=== PATIENT | female | born 1985 | race Caucasian/White ===

== ENCOUNTER 2018-11-30 06:30 | Inpatient (IN) | payer OTHER ==
[~2018-11-30 06:30] MED LIST: CITRIC ACID/SODIUM CITRATE 30 ML UNIT-DOSE CUP PO ONE; ELECTROLYTE-148 SOLN 500 ML IV ONE
[2018-11-30 06:49] VITALS: BMI 26.3
[2018-11-30] MEDS ORDERED: ELECTROLYTE-148 SOLN 1,000 ML IV SCH (07:00)
[2018-11-30] MEDS ORDERED: morphine SULFATE/PF 0.5 MG/ML (2cc Syringe - QUVA) ONE (08:03)
[2018-11-30] MEDS ORDERED: PHENYLEPHRINE HCL 10 MG/1 ML SINGLE DOSE VIAL ONE (08:04)
[2018-11-30] MEDS ORDERED: ceFAZolin SODIUM 1 GM VIAL ONE (08:04)
[2018-11-30] MEDS ORDERED: ePHEDrine SULFATE 50 MG/1 ML AMPULE ONE (08:12)
[2018-11-30] MEDS ORDERED: OXYTOCIN 20 UNITS in 0.9% NS 40 UNIT/2,000 ML INFUS.BAG IV ONE (08:19)
[2018-11-30] MEDS ORDERED: ONDANSETRON 4 MG/2 ML VIAL IVPUSH PRN (09:58)
[2018-11-30] MEDS ORDERED: METHYLERGONOVINE MALEATE 0.2 MG/1 ML AMP IM PRN (10:03)
[2018-11-30] MEDS ORDERED: SENNOSIDES/DOCUSATE COMBO (SENNA PLUS) TABLET (UD) PO PRN (10:03)
[2018-11-30] MEDS ORDERED: oxyCODONE HCL 5 MG TABLET PO PRN (10:03)
--- NOTE | 2018-11-30 10:09 | HP ---
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: Alzheimer's, CVA, Dementia, Migraine, Multiple Sclerosis, Peripheral Neuropathy, Parkinson's, Seizure, Syncope, TIA, Vertigo, Other Cardiovascular: No: AFIB, Aneurysm, Aortic Insufficiency, Aortic Stenosis, CAD, CHF, Deep Vein Thrombosis, HTN, Hyperlipdemia, HI, Mitral Insufficiency, Mitral Stenosis, Murmur, Pulmonary Hypertension, Other Pulmonary: No: Asthma, Bronchitis, Cancer, COPD, O2 Dependent, Pneumonia, Previously Intubated, Pulmonary Embolus, Pulmonary Fibrosis, Sleep Apnea, Other Gastrointestinal: No: Ascites, Cancer, Constipation, Crohn's Disease, Diverticulitis, Diverticulosis, Esophageal Varices, Gastritis, GERD, GI Bleed, Hemorrhoids, Hiatal Hernia, Inflamatory Bowel Disease, Irritable Bowel Disease, Pancreatitis, Peptic Ulcer Disease, Ulcerative Colitis, Other Hepatobiliary: No: Cirrhosis, Cholelithiasis, Cholecystitis, Choledocholithiasis , Hepatitis A, Hepatitis B, Hepatitis C, Other Renal/: No: Renal Failure, Renal Inusuff, BPH, Cancer, Hematuria, Hemodialysis , Neurogenic Bladder, Renal Calculi, UTI, Other Reproductive: No: Ectopic , Endometriosis, Fibroids, PID, Polycystic Ovary Syndrome, Postmenopausal, Other ...: 6 ...Para: 2 ...Term: 2 ...: 0 ...Spon : 3 ...Induced : 0 ...Multiple Gestation: 0 ... Weeks Gestation by Dates: 39.5 ...EDC by Dates: 12/02/18 ...EDC by Sono: 12/06/18 Heme/Onc: No: Anemia, B12 Deficiency, Bleeding Disorder, Cancer, Current Chemotherapy, Current Radiation Therapy, Hemochromatosis, Hypercoaguable State, Myeloproliferative Synd, Sickle Cell Disease, Sickle Cell Trait, Thrombocytopenia, Other Infectious Disease: No: AIDS, C-Diff, Herpes Zoster, HIV, MRSA, STD's, Tuberculosis, VREF, Other Psych: No: Addictions, Anxiety, Bipolar, Depression, Panic, Psychosis, Schizophrenia, Other Musculoskeletal: No: Bursitis, Chronic low back pain, Hemiparesis, Hemiplegia, Osteoarthritis, Paraplegia, Other Rheumatology: No: Fibromyalgia, Gout, Lupus, Rheumatoid Arthritis, Sarcoidosis, Vasculitis, Other ENT: No: Allergic Rhinitis, Sinusitis, Other Endocrine: No: Noman's Disease, Harjeet's Disease, Diabetes Insipidus, Diabetes Mellitus, Hyperparathyroidism, Hyperthyroidism, Hypothyroidism, Osteopenia, SIADH, Other Dermatology: No: Basal Cell, Cellulitis, Eczema, Melanoma, Psoriasis, Squamous Cell, Other - Past Surgical History Past Surgical History: No: None, AAA Repair, AICD, Amputation, Appendectomy, Arthrosocopy, AV Fistula/Graft, Bariatric Surgery, Breast Biopsy, Bypass, CABG, Carotid Endarterectomy, Cataract Removal, Cholecystectomy, Colectomy, Colonoscopy, Colostomy, Craniotomy, , Cystectomy, Hernia Repair, Hysterectomy, Ileal Conduit, Ileosotomy, Joint Replacement, Kidney Transplant, Laminectomy, Liver Transplant, Mastectomy, Nephrectomy, Oopherectomy, Orchiectomy, Permanent Pacemaker, Prostatectomy, Splenectomy, Stent, Thoracotomy , TURP, Tonsillectomy, Tubal Ligation, Upper Endoscopy, Valve Replacement, Vasectomy, Vein Stripping/Ligation Hx Myomectomy: No Hx Transabdominal Cerclage: No - Advance Directives Advance Directives: Yes: Living Will - Smoking History Smoking history: Never smoked Have you smoked in the past 12 months: No - Alcohol/Substance Use Hx Alcohol Use: No History of Substance Use: reports: None - Social History Usual Living Arrangement: Yes: With Spouse ADL: Independent History of Recent Travel: No Home Medications - Allergies Allergies/Adverse Reactions: Allergies Allergy/AdvReac Type Severity Reaction Status Date / Time No Known Allergies Allergy Verified 11/30/18 06:35 - Home Medications Home Medications: Ambulatory Orders Pnv No.95/Ferrous Fum/Folic AC [ Vitamin Tablet] 1 each PO DAILY Family Disease History - Family Disease History Family History: Denies Review of Systems - Review of Systems Constitutional: reports: No Symptoms Eyes: reports: No Symptoms HENT: reports: No Symptoms Neck: reports: No Symptoms Cardiovascular: reports: No Symptoms Respiratory: reports: No Symptoms Gastrointestinal: reports: No Symptoms Genitourinary: reports: No Symptoms Breasts: reports: No Symptoms Reported Musculoskeletal: reports: No Symptoms Integumentary: reports: No Symptoms Neurological: reports: No Symptoms Endocrine: reports: No Symptoms Hematology/Lymphatic: reports: No Symptoms Psychiatric: reports: No Symptoms Physical Exam - Maternity Vital Signs: Vital Signs Temperature 97.6 F 11/30/18 06:38 Pulse Rate 79 11/30/18 06:38 Respiratory Rate 11/30/18 06:38 Blood Pressure 104/62 11/30/18 06:38 O2 Sat by Pulse Oximetry (%) Constitutional: Yes: Well Nourished, No Distress, Calm Eyes: Yes: WNL, Conjunctiva Clear, EOM Intact HENT: Yes: WNL, Atraumatic, Normocephalic Neck: Yes: WNL, Supple, Trachea Midline Cardiovascular: Yes: WNL, Regular Rate and Rhythm Lungs: Clear to auscultation Breast(s): Yes: WNL - Abdominal Exam/OB Fundal Height: 38 Number of Fetuses: Single Presentation: Vertex Contractions: Yes Regularity: Irregular Intensity: Unaware Monitor Mode: External Heart Rate Location: [facility] Category: I Accelerations: Uniform Decelerations: None - Vaginal Exam/OB Vaginal Bleediing: No Speculum Exam: No Amniotic Membrane Status: Intact Station: -2 - Physical Exam Musculoskeletal: Yes: WNL Extremities: Yes: WNL Edema: Yes Edema: LUE: 1+, RUE: 1+, LLE: 1+, RLE: 1+ Integumentary: Yes: WNL Deep Tendon Reflex Grade: Normal +2 ...Motor Strength: WNL Psychiatric: Yes: WNL, Alert, Oriented Assessment/Plan fro repeat lt c s
--- NOTE | 2018-11-30 10:12 | OP ---
Operative Note - Note: Operative Date: 11/30/18 Pre-Operative Diagnosis: repeat lt c s x 3 Operation: repeat lt c s x 3 Findings: no adhesion Post-Operative Diagnosis: Same as Pre-op Surgeon: Idris Alan Agronomy Manager: Manuel Lew Anesthesia: Spinal Estimated Blood Loss (mls): 700 Operative Report Dictated: Yes
[2018-11-30] MEDS ORDERED: D5W-LR W/ 20 UNITS OXYTOCIN 1,000 ML IV SCH (10:15)
--- NOTE | 2018-11-30 10:36 | OP ---
DATE OF OPERATION: 11/30/2018 PREOPERATIVE DIAGNOSIS: Repeat low transverse section. POSTOPERATIVE DIAGNOSIS: Repeat low transverse section x3. PROCEDURE: Repeat low transverse section x3. SURGEON: Jazmyn Bal MD END MATCHER: CHON Morley ANESTHESIA: Spinal by JAYLENE Crawford. INDICATION: This is a 33-year-old female patient, previous low transverse section x2, 39 weeks , was taken to the OR for a repeat low transverse section. All the risks and benefits and alternatives were explained to the patient; so, patient understood. So, patient was taken to the OR, placed on the operating table in supine position. Patient's abdomen and pelvis were prepped and draped in the usual sterile manner. Pfannenstiel incision was made. Incision was made through the skin and subcutaneous tissue until the fascia was nicked in the midline. The fascia extended bilaterally. Intraperitoneal cavity was entered. Bladder flap was created. Low transverse segment of the uterus was entered. Baby delivered from ESTEFANI position. No complication. There was cord around the neck x1. Baby was handed off to the helicopter utility aircrewman after umbilical cord doubly clamped and cut. Cord blood gases obtained. Placenta was removed. Uterus closed in single layer, first layer interlocking Vicryl sutures. Good hemostasis. Both gutters cleaned. Both ovaries, fallopian tubes, and uterus were within normal limits. No complications. Tolerated the procedure well. Bladder flap was closed. The peritoneum was closed. The fascia was closed. Both gutters were cleaned. No complication and blood loss was about 700 mL. Draining clear urine. Transferred to recovery room in stable condition. JAZMYN BAL MD [id number]
[2018-11-30] MEDS: OXYTOCIN 20 UNITS in 0.9% NS 20 UNIT/1,000 ML INFUS.BAG IV SCH ×2 (10:45→18:18)
[2018-11-30] MEDS ORDERED: ZOLPIDEM TARTRATE 5 MG TABLET PO PRN (11:00)
[2018-11-30] MEDS ORDERED: IBUPROFEN 800 MG/8 ML IJ IVPB ONE (11:42)
[2018-11-30] MEDS: IBUPROFEN 800 MG/8 ML IJ IVPB PRN ×2 (11:45→22:50)
[2018-11-30] MEDS: ACETAMINOPHEN 325 MG TABLET (FP) PO PRN (16:45)
--- NOTE | 2018-11-30 16:51 | PN ---
Post Progress Note Type of Delivery: Repeat C/S Vital Signs: Vital Signs Temperature 97.7 F 11/30/18 14:30 Pulse Rate 75 11/30/18 14:30 Respiratory Rate 20 11/30/18 15:30 Blood Pressure 99/58 L 11/30/18 14:30 O2 Sat by Pulse Oximetry (%) 100 11/30/18 11:15 Breast Exam: Yes: Soft (unable to nurse) Uterus: Yes: Fundus Firm Incision: Yes: Dressing dry and intact Abdomen/GI: Yes: Abdomen soft Lochia: Yes: Oxana (RN reported lochia heavy. Methergine IM given) Lochia, amount: Moderate Extremities: Yes: Calves non-tender Other Findings, Remarks: PE: unremarkable. Abd. soft. Uterus well contracted. Lochia wnl at present. Assessment/Plan Status post c/section. Doing well. Observe. OOB, advance diet. Routine post c/s care. All discussed with patient and her .
[2018-11-30] MEDS: ZOLPIDEM TARTRATE 5 MG TABLET PO PRN (22:51)
--- NOTE | 2018-12-01 06:07 | PN ---
Post Progress Note - Subjective Subjective: POD # ! Feels well Pain under comtrol. No escessive bleeding. Slept well. Unable to nurse. Type of Delivery: Repeat C/S Vital Signs: Vital Signs Temperature 97.7 F 12/01/18 04:00 Pulse Rate 79 12/01/18 04:00 Respiratory Rate 20 12/01/18 05:00 Blood Pressure 96/56 L 12/01/18 04:00 O2 Sat by Pulse Oximetry (%) 100 11/30/18 11:15 Breast Exam: Yes: Engorged Uterus: Yes: Fundus Firm Incision: Yes: Dressing dry and intact (Dressing removed. Incision clean and dry.) Abdomen/GI: Yes: Abdomen soft, Tolerating PO Lochia: Yes: Rubra Lochia, amount: Moderate Extremities: Yes: Calves non-tender Activity: Ambulating Assessment/Plan Good recovery. Healing well. OOB. Diet as tolerated. Shower. Breast care, supportive bra, ice packs.
[2018-12-01] MEDS: IBUPROFEN 800 MG/8 ML IJ IVPB PRN (06:47)
[2018-12-01 08:21] LABS: BASO % 0.4 % (0-2.0); EOS % 2.3 % (0-4.5); HEMATOCRIT 29.9 % (32.4-45.2); HEMOGLOBIN 9.7 GM/dL (10.7-15.3); LYMPH % 6.9 % (8-40); MCHC 32.5 g/dl (32.0-36.0); MEAN CELL VOLUME 76.9 fl (80-96); MEAN PLT VOLUME 8.1 fl (7.5-11.1); MONO % 5.2 % (3.8-10.2); NEUT % 85.2 % (42.8-82.8); PLATELET COUNT 208 K/MM3 (134-434); RBC 3.89 M/mm3 (3.60-5.2); RDW 16.1 % (11.6-15.6); WHITE BLOOD COUNT 9.1 K/mm3 (4.0-10.0)
[2018-12-01] MEDS ORDERED: DIPHTH,PERTUSS(ACELL),TET 0.5 ML DISP.SYRIN IM ONE (10:00)
[2018-12-01] MEDS ORDERED: BISACODYL 10 MG SUPP.RECT RC PRN (10:03)
[2018-12-01] MEDS: ENOXAPARIN NA (PORCINE) 40 MG/0.4 ML DISP.SYRIN SQ SCH (11:31)
[2018-12-01] MEDS: oxyCODONE HCL 5 MG TABLET PO PRN ×2 (13:12→18:30)
[2018-12-01] MEDS: ACETAMINOPHEN 325 MG TABLET (FP) PO PRN ×2 (13:13→18:31)
[2018-12-01] MEDS: SIMETHICONE 80 MG TAB.CHEW (FP) PO PRN ×2 (13:14→18:30)
--- NOTE | 2018-12-01 14:44 | PN ---
Progress Note (short form) - Note Progress Note: Anesthesia POD#1 S/P under Spinal and Duramorph VSS,no N/V,moderate pain,using oral meds. Legs fully recovered. Ashley Mireles MD.
[2018-12-01] MEDS: IBUPROFEN 600 MG TABLET (FP) PO PRN (21:44)
[2018-12-01] MEDS: ZOLPIDEM TARTRATE 5 MG TABLET PO PRN (21:45)
--- NOTE | 2018-12-02 08:56 | PN ---
Post Progress Note - Subjective Subjective: POD # 2 VSS. Feels well. Still some pain. Flatus yes. BM yes. Type of Delivery: Repeat C/S Vital Signs: Vital Signs Temperature 98.3 F 12/01/18 21:45 Pulse Rate 96 H 12/01/18 21:45 Respiratory Rate 18 12/01/18 21:45 Blood Pressure 111/69 12/01/18 21:45 O2 Sat by Pulse Oximetry (%) 100 11/30/18 11:15 Breast Exam: Yes: Engorged Uterus: Yes: Fundus Firm Incision: Yes: Sutures intact Abdomen/GI: Yes: Abdomen soft (Mildly distendewd. BS pos.) Lochia: Yes: Rubra Lochia, amount: Small Extremities: Yes: Calves non-tender - Labs Labs: CBC WBC 9.1 K/mm3 (4.0-10.0) 12/01/18 07:25 RBC 3.89 M/mm3 (3.60-5.2) 12/01/18 07:25 Hgb 9.7 GM/dL (10.7-15.3) L 12/01/18 07:25 Hct 29.9 % (32.4-45.2) L 12/01/18 07:25 MCV 76.9 fl (80-96) L 12/01/18 07:25 MCH 25.0 pg (25.7-33.7) L 12/01/18 07:25 MCHC 32.5 g/dl (32.0-36.0) 12/01/18 07:25 RDW 16.1 % (11.6-15.6) H 12/01/18 07:25 Plt Count 208 K/MM3 (134-434) D 12/01/18 07:25 MPV 8.1 fl (7.5-11.1) 12/01/18 07:25 Absolute Neuts (auto) 7.8 K/mm3 (1.5-8.0) 12/01/18 07:25 Neutrophils % 85.2 % (42.8-82.8) H 12/01/18 07:25 Lymphocytes % 6.9 % (8-40) L D 12/01/18 07:25 Monocytes % 5.2 % (3.8-10.2) 12/01/18 07:25 Eosinophils % 2.3 % (0-4.5) D 12/01/18 07:25 Basophils % 0.4 % (0-2.0) 12/01/18 07:25 Nucleated RBC % 0 % (0-0) 12/01/18 07:25 Assessment/Plan Doing well Healing. Sl. distention and discofort. Breasts ice. bra 24 hrs. OOB! Fully discussed.
[2018-12-02] MEDS: oxyCODONE HCL 5 MG TABLET PO PRN ×4 (09:16→21:47)
[2018-12-02] MEDS: ACETAMINOPHEN 325 MG TABLET (FP) PO PRN ×3 (09:17→17:47)
[2018-12-02] MEDS: ENOXAPARIN NA (PORCINE) 40 MG/0.4 ML DISP.SYRIN SQ SCH (09:18)
[2018-12-02] MEDS: SIMETHICONE 80 MG TAB.CHEW (FP) PO PRN ×3 (13:45→21:47)
[2018-12-02] MEDS ORDERED: DIPHTH,PERTUSS(ACELL),TET 0.5 ML DISP.SYRIN IM ONE (15:30)
[2018-12-02] MEDS: IBUPROFEN 600 MG TABLET (FP) PO PRN (21:47)
[2018-12-02] MEDS: ZOLPIDEM TARTRATE 5 MG TABLET PO PRN (21:48)
[2018-12-03 07:37] LABS: BASO % 0.5 % (0-2.0); EOS % 4.5 % (0-4.5); HEMATOCRIT 28.7 % (32.4-45.2); HEMOGLOBIN 9.4 GM/dL (10.7-15.3); LYMPH % 17.7 % (8-40); MCH 25.2 pg (25.7-33.7); MCHC 32.6 g/dl (32.0-36.0); MEAN CELL VOLUME 77.3 fl (80-96); MONO % 6.8 % (3.8-10.2); NEUT % 70.5 % (42.8-82.8); PLATELET COUNT 229 K/MM3 (134-434); RBC 3.71 M/mm3 (3.60-5.2); RDW 15.9 % (11.6-15.6); WHITE BLOOD COUNT 5.8 K/mm3 (4.0-10.0)
[2018-12-03 09:29] VITALS: BP 107/68; PULSE 76; TEMP 98.4
[2018-12-03] MEDS: IBUPROFEN 600 MG TABLET (FP) PO PRN ×2 (09:29→13:04)
[2018-12-03] MEDS: SIMETHICONE 80 MG TAB.CHEW (FP) PO PRN (09:30)
[2018-12-03] MEDS: ACETAMINOPHEN 325 MG TABLET (FP) PO PRN ×2 (09:30→13:06)
[2018-12-03] MEDS: ENOXAPARIN NA (PORCINE) 40 MG/0.4 ML DISP.SYRIN SQ SCH (09:31)
--- NOTE | 2018-12-03 09:33 | PN ---
Progress Note (short form) - Note Progress Note: POD # 3 Patient is doing very well. Pain meds given for home. Discussed with the nursing staff. Discharge today.
--- NOTE | 2018-12-06 17:34 | PATH ---
Surgical Pathology Report Patient Name: VERONICA VELÁSQUEZ [facility]. Rec. #: [id number] /Age/Gender: 1985 (Age: 33) / F Account: [id number] Location: [facility] OBS/NETWORK SPECIALIST Taken: 11/30/2018 Received: 12/01/2018 Reported: 12/06/2018 Physicians: Idris Alan MD Specimen(s) Received PLACENTA Clinical History , 39.1weeks, repeat Final Diagnosis PLACENTA: THIRD TRIMESTER PLACENTA. TRIVASCULAR CORD. MEMBRANES WITH NO DIAGNOSTIC ABNORMALITIES. Electronically Signed Mere Prajapati M.D. Gross Description The specimen is received fresh labeled placenta and is a 359 gram, 15 x15 x 2.1cm. placenta with attached membranes and umbilical cord. The attached membranes are glistening, translucent, and insert marginally. The umbilical cord measures 41 cm. in length and averages 1.0 cm. in diameter. The cord inserts eccentrically, 2.5 centimeter to the nearest margin. No true knots or strictures are identified. Cut surface of the umbilical cord reveals 3 vessels. Sectioning reveals red-brown, spongy parenchyma. No lesions are identified. Data Analyst sections are submitted in three cassettes as follows: 1- membrane rolls and umbilical cord; 2-3- full thickness sections of placenta KWS/12/04/2018 dishaki/12/04/2018
== END 2018-12-03 13:50 | disposition home or self-care (01) | DRG 540 ==
LOC: JLDR 06:30 → J3W 14:30
PROVIDERS: ADMIT Obstetrics & Gynecology; ATTEND Obstetrics & Gynecology
PROC: 10D00Z1 Extraction of Products of Conception, Low, Open Approach (ICD-10-PCS; principal; 2018-11-30)
DX: O34.219 Maternal care for unspecified type scar from previous cesarean delivery (principal); O69.81X0 Labor and delivery complicated by cord around neck, without compression, not applicable or unspecified; Z3A.39 39 weeks gestation of pregnancy; Z37.0 Single live birth
CPT/HCPCS: 36415; 85025; 88307-TC; 90715